=== PATIENT | male | born 1965 | race African-American/Black ===

== ENCOUNTER 2017-04-13 22:31 | Inpatient (IN) | payer SELFPAY ==
[~2017-04-13] VITALS: Ht 182.9 cm; Wt 77.1 kg
[2017-04-13] MEDS ORDERED: IV NORMAL SALINE 1000 ML BAG IV ONE (23:30)
[2017-04-13] MEDS ORDERED: ONDANSETRON 4 MG/2 ML VIAL IV ONE (23:30)
[2017-04-13 23:45] LABS: BASOPHILS # (AUTO) 0.2 K/uL (0.0-8.0); BASOPHILS % (AUTO) 1.2 % (0.0-2.0); EOSINOPHILS # (AUTO) 1.1 K/uL (0.0-0.7); HEMATOCRIT 37.5 % (40-50); HEMOGLOBIN 12.8 G/DL (14.0-18.0); LYMPHOCYTES # (AUTO) 1.3 K/UL (0.8-4.8); LYMPHOCYTES % (AUTO) 7.7 % (20.5-51.5); MEAN CORPUSCULAR HEMOGLOBIN 31.1 UUG (27.0-31.0); MEAN CORPUSCULAR HGB CONC 34 g/dL (32.0-37.0); MEAN CORPUSCULAR VOLUME 90.8 FL (82.0-92.0); MONOCYTES # (AUTO) 0.5 K/UL (0.1-1.30); MONOCYTES % (AUTO) 3.1 % (0.0-11.0); NEUTROPHILS # (AUTO) 13.3 K/UL (1.8-8.9); PLATELET COUNT (AUTO) 653 K/UL (150-450); RED BLOOD CELL COUNT(AUTO) 4.13 MIL/UL (4.7-6.1); WHITE BLOOD COUNT (AUTO) 16.4 K/UL (4.0-11.2)
[2017-04-13] MEDS ORDERED: ONDANSETRON 4 MG/2 ML VIAL ONE (23:46)
[2017-04-14] VITALS (7 sets, daily range): BP systolic 142–174; BP diastolic 66–88
[2017-04-14 00:06] LABS: BILIRUBIN,DIRECT 0.1 mg/dL (0.0-0.2); BILIRUBIN,TOTAL 0.3 mg/dL (0.2-1.0); POTASSIUM 3.2 mmol/L (3.5-5.1); TOTAL PROTEIN, SERUM 8.3 g/dL (6.4-8.2)
[2017-04-14 01:27] LABS: *BILIRUBIN,URIN NEGATIVE (NEGATIVE); *BLOOD, URINE 1+ (NEGATIVE); *CLARITY,URINE CLEAR (CLEAR); *COLOR,URINE YELLOW (YELLOW); *KETONES,URINE NEGATIVE (NEGATIVE); *PROTEIN,URINE NEGATIVE (NEGATIVE); *UROBILINOGEN,URINE 0.2 E.U./dl (NORMAL); LEUKOCYTE ESTERASE ,URINE NEGATIVE (NEGATIVE); NITRITE, URINE NEGATIVE (NEGATIVE); PH,URINE 6.5 (5.0-8.0); UGLUCOSE NEGATIVE (NEGATIVE)
[2017-04-14 01:41] LABS: BACTERIA,URINE NONE SEEN /HPF (NONE SEEN); RBC,URINE 0-3 /HPF (0-3); SQUAMOUS EPITHELIAL CELL,UR FEW /HPF (NONE SEEN)
[2017-04-14] MEDS ORDERED: IOHEXOL 300MG/ML 100 ML INFUS..BTL ONE (02:02)
[2017-04-14] MEDS ORDERED: IV NORMAL SALINE 250 ML IV ONE (02:02)
[2017-04-14] MEDS ORDERED: VANCOMYCIN IV 1,000 MG in IV DEXTROSE 5% 250 ML IV ONE (03:30)
[2017-04-14] MEDS ORDERED: PIPERACILLIN SODIUM/TAZOBACTAM 3.375 G in IV DEXTROSE 5% 50 ML IV ONE (03:30)
[2017-04-14] MEDS ORDERED: PIPERACILLIN/TAZOBACTAM/D5W 50 ML IV ONE (03:45)
[2017-04-14] MEDS ORDERED: IV NS 1000 ML 1,000 ML IV PRN (04:23)
[2017-04-14] MEDS ORDERED: Z GUARD REMEDY PASTE 57 GM TUBE TOP PRN (04:30)
[2017-04-14] MEDS ORDERED: ACETAMINOPHEN 325 MG TABLET PO PRN (04:30)
[2017-04-14] MEDS ORDERED: ONDANSETRON 4 MG/2 ML VIAL IV PRN (04:30)
[2017-04-14] MEDS ORDERED: MAGNESIUM HYDROXIDE 30 ML LIQUID UDC PO PRN (04:30)
[2017-04-14] MEDS ORDERED: VANCOMYCIN IV 200 ML ONE (04:33)
--- NOTE | 2017-04-14 04:49 | NUR ---
Pt. admitted to TELE, under care of Dr. Martinez Belongs List completed
[2017-04-14 06:44] LABS: BASOPHILS % (AUTO) 0.2 % (0.0-2.0); EOSINOPHILS # (AUTO) 1.3 K/uL (0.0-0.7); EOSINOPHILS % (AUTO) 9.3 % (0.0-7.0); HEMATOCRIT 35.4 % (40-50); HEMOGLOBIN 12.1 G/DL (14.0-18.0); LYMPHOCYTES # (AUTO) 1.7 K/UL (0.8-4.8); LYMPHOCYTES % (AUTO) 12.4 % (20.5-51.5); MEAN CORPUSCULAR HEMOGLOBIN 31.2 UUG (27.0-31.0); MEAN CORPUSCULAR HGB CONC 34 g/dL (32.0-37.0); MEAN CORPUSCULAR VOLUME 91.6 FL (82.0-92.0); MONOCYTES % (AUTO) 7.1 % (0.0-11.0); NEUTROPHILS # (AUTO) 9.9 K/UL (1.8-8.9); PLATELET COUNT (AUTO) 622 K/UL (150-450); RED BLOOD CELL COUNT(AUTO) 3.87 MIL/UL (4.7-6.1); WHITE BLOOD COUNT (AUTO) 13.9 K/UL (4.0-11.2)
[2017-04-14 07:10] LABS: THYROID STIMULATING HORMONE 1.574 mIU/mL (0.358-3.740)
[2017-04-14 08:28] LABS: BILIRUBIN,TOTAL 0.3 mg/dL (0.2-1.0); CREATININE 1.1 mg/dL (0.6-1.3); MAGNESIUM 2.1 mg/dL (1.8-2.4); PHOSPHOROUS 2.5 mg/dL (2.5-4.9); POTASSIUM 3.4 mmol/L (3.5-5.1); TOTAL PROTEIN, SERUM 7.6 g/dL (6.4-8.2)
[2017-04-14] MEDS ORDERED: IBUP-1957 PO (08:52)
[2017-04-14] MEDS: PIPERACILLIN/TAZOBACTAM/D5W 50 ML IV SCH ×3 (09:50→21:21)
[2017-04-14] MEDS ORDERED: IPRATROPIUM BROMIDE 0.5 MG/2.5 ML NEBU NEB PRN (10:00)
[2017-04-14] MEDS ORDERED: CLONIDINE HCL 0.1 MG TABLET PO PRN (10:00)
[2017-04-14] MEDS ORDERED: POTASSIUM CHLORIDE 20 MEQ TAB.PRT.SR PO ONE (10:00)
[2017-04-14] MEDS ORDERED: ALBUTEROL SULFATE 2.5 MG/3 ML NEBU NEB PRN (10:00)
[2017-04-14] MEDS ORDERED: ALBUTEROL SULFATE 2.5 MG/ 0.5 ML NEBU NEB PRN (10:00)
--- NOTE | 2017-04-14 10:20 | NUR ---
PATIENT SEEN AND EXAMINED BY DR HALL WITH NEW ORDERS AND NOTED.
--- NOTE | 2017-04-14 11:15 | NUR ---
PATIENT IS FOR ULTRASOUND OF THE ABDOMEN TODAY AND HAS TO BE NPO UNTIL ABOUT [phone].PATIENT AWARE
[2017-04-14 11:28] LABS: ABG BASE EXCESS 4.3 mmol/L; ABG HCO3 27.7 mmol/L; ABG PH 7.492 (7.350-7.450); ABG PO2 64.4 mmHg (75.0-100.0); ABG SITE RIGHT BRACHIAL; COHb 1.5 % (0.5-1.5); MetHb 0.3 % (0.0-1.5); O2Hb 90.6 % (94.0-97.0); VENT MODE RA
[2017-04-14] MEDS ORDERED: ALBUTEROL SULFATE 2.5 MG/3 ML NEBU NEB SCH (11:30)
[2017-04-14] MEDS: AZITHROMYCIN IV 500 MG in IV DEXTROSE 5% 250 ML IV SCH (11:47)
[2017-04-14] MEDS: IPRATROPIUM BROMIDE 0.5 MG/2.5 ML NEBU NEB SCH ×4 (11:48→22:44)
[2017-04-14] MEDS: ALBUTEROL SULFATE 2.5 MG/ 0.5 ML NEBU NEB SCH ×4 (11:50→22:44)
--- NOTE | 2017-04-14 12:17 | NUR ---
BLOOD PRESSURE IS 163/88 AT THIS TIME WITH ORDER TO STOP THE IVF AND START PATIENT ON NORVASC.PATIENT AWARE..
[2017-04-14] MEDS: AMLODIPINE 5 MG TABLET PO SCH (12:41)
--- NOTE | 2017-04-14 14:00 | NUR ---
PATIENT AWARE THAT DR HALL ORDERED TO CHECK O2 SATURATION ON ROOM AIR AT REST AND AFTER EXERCISE AND HE STATED OKAY WILL LET ME KNOW WHEN HE CAM AMBULATE.NO RESPIRATORY DISTRESS AT THIS TIME.
[2017-04-14] MEDS: VANCOMYCIN IV 1,250 MG in IV DEXTROSE 5% 500 ML IV SCH (14:24)
--- NOTE | 2017-04-14 15:48 | NUR ---
Clinical pharmacy note-Vancomycin dosing per pharmacy Subjective: To start empiric Vancomycin dosing on this patient (possible pneumonia) Objective: BUN 9 Scr 1.1 WBC 13.9 Temp 98.7 Ht 6' Wt 170 lbs Assessment/Plan: Patient had Vancomycin 1gram x1 in ER today at 0415. Will continue as Vancomycin 1250mg IV every 12hrs(first dose today at 1400) and draw trough by 4th dose(not ordered yet) for expected trough around 16. Will monitor renal function closely to adjust the dose. Will follow daily.
--- NOTE | 2017-04-14 17:30 | NUR ---
PATIENTS SATURATION CHECKED ON ROOM AIR WHILE HE WAS RESTING IN HIS BED AND ITS 96% WITH HEART RATE OF 83.THEN PATIENT ASSISTED WITH AMBULATION ON THE HALLWAY AROUND THE NURSES STATION AND O2 SAT CHECKED AND ITS 93-94% WITH HEART RATE OF 88.PATIENT EXPRESSED HAVING SHORTNESS OF BREATH AND REQUESTED FOR HAND HELD NEBULIZER GIVEN AND HELPFUL.
--- NOTE | 2017-04-14 19:35 | NUR ---
PT RECEIVED IN BED, AWAKE. A/OX4. ABLE TO MAKE NEEDS KNOWN. V/S STABLE. NO ACUTE DISTRESS NOTED. NO COMPLAINTS OF PAIN AT THIS TIME. PT DOES NOT COMPLAIN OF SOB. PT HEAD ELEVATED. SAFETY MEASURES IMPLEMENTED. CALL LIGHT WITHIN REACH.
--- NOTE | 2017-04-14 19:48 | NUR ---
ROUTINE ALBUTEROL + ATROVENT TX NOT ADMINISTERED AT 1900 DUE TO PRN BEING ADMINISTERED AT 1820. NO SOB NOTED AT THIS TIME. PATIENT IS IN STABLE CONDITION; VITAL WITHIN NORMAL RANGE. WILL CONTINUE TO MONITOR.
[2017-04-14] MEDS: HYDROCODONE/APAP 5-325MG TABLET PO PRN (22:29)
[2017-04-15] MEDS: VANCOMYCIN IV 1,250 MG in IV DEXTROSE 5% 500 ML IV SCH ×2 (02:11→14:41)
[2017-04-15] MEDS: ALBUTEROL SULFATE 2.5 MG/ 0.5 ML NEBU NEB SCH ×6 (02:26→22:45)
[2017-04-15] MEDS: IPRATROPIUM BROMIDE 0.5 MG/2.5 ML NEBU NEB SCH ×6 (02:26→22:44)
[2017-04-15 04:00] VITALS: BP 140/82
[2017-04-15] MEDS: PIPERACILLIN/TAZOBACTAM/D5W 50 ML IV SCH ×4 (05:34→22:02)
--- NOTE | 2017-04-15 06:10 | NUR ---
END OF SHIFT NOTES. PT SLEPT WELL THROUGHOUT SHIFT. PT IN STABLE CONDITION. NO ACUTE DISTRESS NOTED. IV ANTIBIOTICS INFUSED. NEEDS ATTENDED. SAFETY MAINTAINED. CALL LIGHT WITHIN REACH.
[2017-04-15 07:13] LABS: BASOPHILS # (AUTO) 0.1 K/uL (0.0-8.0); BASOPHILS % (AUTO) 0.7 % (0.0-2.0); EOSINOPHILS # (AUTO) 1.2 K/uL (0.0-0.7); EOSINOPHILS % (AUTO) 11.2 % (0.0-7.0); LYMPHOCYTES # (AUTO) 2.1 K/UL (0.8-4.8); LYMPHOCYTES % (AUTO) 19.3 % (20.5-51.5); MEAN CORPUSCULAR HEMOGLOBIN 30.7 UUG (27.0-31.0); MEAN CORPUSCULAR HGB CONC 33 g/dL (32.0-37.0); MEAN CORPUSCULAR VOLUME 91.9 FL (82.0-92.0); MONOCYTES # (AUTO) 0.8 K/UL (0.1-1.30); MONOCYTES % (AUTO) 7.9 % (0.0-11.0); NEUTROPHILS # (AUTO) 6.5 K/UL (1.8-8.9); NEUTROPHILS % (AUTO) 60.9 % (38.5-71.5); PLATELET COUNT (AUTO) 629 K/UL (150-450); RED BLOOD CELL COUNT(AUTO) 3.92 MIL/UL (4.7-6.1); WHITE BLOOD COUNT (AUTO) 10.7 K/UL (4.0-11.2)
[2017-04-15 07:34] LABS: BILIRUBIN,TOTAL 0.2 mg/dL (0.2-1.0); MAGNESIUM 2.1 mg/dL (1.8-2.4); POTASSIUM 3.5 mmol/L (3.5-5.1); TOTAL PROTEIN, SERUM 7.6 g/dL (6.4-8.2)
[2017-04-15] MEDS: AMLODIPINE 5 MG TABLET PO SCH (08:33)
--- NOTE | 2017-04-15 10:00 | NUR ---
PATIENT SEEN AND EXAMINED BY DR MI WITH NO NEW ORDERS AT THIS TIME.REMAIN ON IV ANTIBIOTICS ORDERED WITH NO ADVERSE OR ALLERGIC REACTIONS AT THIS TIME.REMAIN ON HAND HELD NEBULIZER ORDERED AND HELPFUL.
[2017-04-15 10:11] LABS: HEPATITIS A AB, IgM Negative (Negative); HEPATITIS B SURFACE AG Negative (Negative)
[2017-04-15] MEDS: AZITHROMYCIN IV 500 MG in IV DEXTROSE 5% 250 ML IV SCH (10:29)
[2017-04-15 11:36] VITALS: BP 137/85
--- NOTE | 2017-04-15 12:27 | NUR ---
PATIENT SEEN AND EXAMINED BY DR HALL WITH NEW ORDERS AND NOTED.PATIENT IS NOW WALKING IN THE HALLWAY ROOM AIR WITH NO SHORTNESS OF BREATH AT THIS TIME.
--- NOTE | 2017-04-15 13:32 | NUR ---
Clinical pharmacy note-Vancomycin dosing per pharmacy Subjective: To continue empiric Vancomycin dosing on this patient for bilateral pneumonia, acute community-acquired, probably atypical (per Dr. Garcia note) Objective: BUN 7 Scr 1.0 WBC 10.7 Temp 98.4 Ht 6' Wt 170 lbs Assessment/Plan: Will continue as Vancomycin 1250mg IV every 12hrs for today for predicted vanco trough level of 15 mcg/ml at steady state. Third dose is due tomorrow at 0200. Plan to draw trough by 4th dose(ordered for 04/16 at 1330). Will monitor renal function closely to adjust the dose. Will follow daily.
[2017-04-15 16:10] VITALS: BP 154/90
--- NOTE | 2017-04-15 17:59 | NUR ---
RESTING IN BED CONTINUES WITH IV ANTIBIOTICS ORDERED WITH NO ADVERSE OR ALLERGIC REACTIONS AT THIS TIME.PATIENT STATED FEELING BETTER BUT STILL HAS NO APPETITE.
--- NOTE | 2017-04-15 19:40 | NUR ---
PT RECEIVED IN BED, AWAKE. AT BEDSIDE. V/S STABLE. NO ACUTE DISTRESS NOTED. NO COMPLAINTS OF PAIN AT THIS TIME. IV HEP-LOCKED. PT SHOWS NO S/S OF RESPIRATORY DISTRESS. VERBALIZED SOB AND HAVING TO CATCH BREATH AFTER SPEAKING FOR LONG PERIODS. SAFETY MEASURES IMPLEMENTED. CALL LIGHT WITHIN REACH.
[2017-04-15 19:54] LABS: PRE ALBUMIN 14.2 MG/DL (18.0-35.7)
[2017-04-15 20:58] VITALS: BP 136/94
[2017-04-15] MEDS: LACTOBACILLUS RHAMNOSUS GG 1 EACH CAPSULE PO SCH (22:02)
[2017-04-15] MEDS: HYDROCODONE/APAP 5-325MG TABLET PO PRN (22:18)
[2017-04-16] MEDS: VANCOMYCIN IV 1,250 MG in IV DEXTROSE 5% 500 ML IV SCH (01:16)
[2017-04-16] MEDS: IPRATROPIUM BROMIDE 0.5 MG/2.5 ML NEBU NEB SCH ×6 (02:31→22:44)
[2017-04-16] MEDS: ALBUTEROL SULFATE 2.5 MG/ 0.5 ML NEBU NEB SCH ×6 (02:31→22:44)
[2017-04-16 04:00] VITALS: BP 137/84
[2017-04-16] MEDS: PIPERACILLIN/TAZOBACTAM/D5W 50 ML IV SCH ×4 (04:14→21:14)
--- NOTE | 2017-04-16 07:01 | NUR ---
END OF SHIFT NOTES. PT IN STABLE CONDITION. IN NO ACUTE DISTRESS. NO COMPLAINTS OF SOB. NEEDS ATTENDED. IV ANTIBIOTICS INFUSED. SAFETY MAINTAINED.
[2017-04-16] MEDS: LACTOBACILLUS RHAMNOSUS GG 1 EACH CAPSULE PO SCH ×2 (09:31→20:24)
[2017-04-16] MEDS: AMLODIPINE 5 MG TABLET PO SCH (09:33)
--- NOTE | 2017-04-16 10:30 | NUR ---
ASSUMED CARE OF THIS PATIENT AT THIS TIME HE IS ALERT AND ORIENTED REMAIN ON ANTIBIOTICS ORDERED WITH NO ADVERSE OR ALLERGIC REACTIONS AT THIS TIME HHN TREATMENTS IN PROGRESS ORDERED AND HELPFUL REMAIN ON ROOM AIR WITH NO SOB AT THIS TIME.
[2017-04-16] MEDS: AZITHROMYCIN IV 500 MG in IV DEXTROSE 5% 250 ML IV SCH (11:22)
[2017-04-16 12:10] VITALS: BP 132/85
--- NOTE | 2017-04-16 14:23 | NUR ---
VANCO TROUGH LEVEL IS 7.1 PATIENT HAS VANCOMICIN DUE TO BE ADMINISTERED AT THIS TIME.CALLED PHARMACY AND NOTIFIED THEM AND PER HOMER WILL RE DOSE THE VANCOMICIN.
[2017-04-16] MEDS: VANCOMYCIN IV 1,500 MG in IV DEXTROSE 5% 500 ML IV SCH ×2 (14:45→22:02)
--- NOTE | 2017-04-16 14:51 | NUR ---
Clinical pharmacy note-Vancomycin dosing per pharmacy Subjective: To continue empiric Vancomycin dosing on this patient for bilateral pneumonia, acute community-acquired, probably atypical (per Dr. Garcia note) Objective: BUN 7 Scr 1.0 WBC 10.7 (from 04/15) Temp 98.4: vanco trough 7.1 @ 13:40 Ht 6' Wt 170 lbs Assessment/Plan: Will change regimen as Vancomycin 1500mg IV every 8 hrs (today's dose # 1) for predicted vanco trough level of 17 mcg/ml at steady state. will order a new trough prior to 4th dose (not ordered yet) Will monitor renal function closely to adjust the dose. Will follow daily.
[2017-04-16 16:15] VITALS: BP 127/81
--- NOTE | 2017-04-16 16:58 | NUR ---
PATIENT SEEN AND EXAMINED BY DR HALL WITH NEW ORDERS AND NOTED.REMAIN ON IV ANTIBIOTICS ORDERED WITH NO ADVERSE OR ALLERGIC REACTIONS AT THIS TIME.
--- NOTE | 2017-04-16 18:30 | NUR ---
ASSISTED PATIENT INTO SHOWER ROOM WITH HIS IV SITE WRAPPED AND SECURED.
[2017-04-16 20:00] VITALS: BP 161/99
--- NOTE | 2017-04-16 20:00 | NUR ---
patient alert, oriented,afebrile,no sob,o2 sat >94% in room air,patient remains feeling weak,poor appetite,denies pain/discomfort.Bp 161/99,Catapres o.1 mg po given,continue closely monitor.
[2017-04-16 21:08] LABS: *QFT MITOGEN VALUE 5.01 IU/mL (.); *QFT TB AG MINUS NIL VALUE <0.00 IU/mL (.); *QFT TB AG VALUE 0.04 IU/mL (.); *QFT TB GOLD Negative (Negative)
--- NOTE | 2017-04-17 | NUR ---
PATIENT RECEIVED BREATHING TREATMENT WITH GOOD RESULT, BUT REQUESTED TO HOLD 0330 DOSE.
[2017-04-17] MEDS: IPRATROPIUM BROMIDE 0.5 MG/2.5 ML NEBU NEB SCH ×4 (02:32→14:56)
[2017-04-17] MEDS: ALBUTEROL SULFATE 2.5 MG/ 0.5 ML NEBU NEB SCH ×4 (02:32→14:56)
[2017-04-17 04:00] VITALS: BP 123/74
[2017-04-17] MEDS: PIPERACILLIN/TAZOBACTAM/D5W 50 ML IV SCH ×3 (04:11→15:31)
[2017-04-17] MEDS: VANCOMYCIN IV 1,500 MG in IV DEXTROSE 5% 500 ML IV SCH ×2 (05:27→14:00)
--- NOTE | 2017-04-17 06:00 | NUR ---
PATIENT SLEPT WELL THROUGH THE SHIFT,NO RESPIRATORY DISTRESS,DOING OK IN ROOM AIR, AFEBRILE,BP STABLE.
[2017-04-17 06:24] LABS: BASOPHILS % (AUTO) 0.4 % (0.0-2.0); EOSINOPHILS % (AUTO) 10.5 % (0.0-7.0); HEMATOCRIT 41.2 % (40-50); LYMPHOCYTES # (AUTO) 2.3 K/UL (0.8-4.8); LYMPHOCYTES % (AUTO) 24.2 % (20.5-51.5); MEAN CORPUSCULAR HEMOGLOBIN 30.8 UUG (27.0-31.0); MEAN CORPUSCULAR HGB CONC 34 g/dL (32.0-37.0); MEAN CORPUSCULAR VOLUME 90.5 FL (82.0-92.0); MONOCYTES # (AUTO) 0.8 K/UL (0.1-1.30); MONOCYTES % (AUTO) 8.3 % (0.0-11.0); NEUTROPHILS # (AUTO) 5.3 K/UL (1.8-8.9); NEUTROPHILS % (AUTO) 56.6 % (38.5-71.5); PLATELET COUNT (AUTO) 728 K/UL (150-450); RED BLOOD CELL COUNT(AUTO) 4.55 MIL/UL (4.7-6.1); WHITE BLOOD COUNT (AUTO) 9.4 K/UL (4.0-11.2)
[2017-04-17 06:40] LABS: BILIRUBIN,TOTAL 0.4 mg/dL (0.2-1.0); CREATININE 1.2 mg/dL (0.6-1.3); MAGNESIUM 2.2 mg/dL (1.8-2.4); POTASSIUM 4.3 mmol/L (3.5-5.1); TOTAL PROTEIN, SERUM 8.9 g/dL (6.4-8.2)
[2017-04-17] MEDS: LACTOBACILLUS RHAMNOSUS GG 1 EACH CAPSULE PO SCH (08:59)
[2017-04-17] MEDS: AMLODIPINE 5 MG TABLET PO SCH (08:59)
--- NOTE | 2017-04-17 09:00 | NUR ---
PT REPORTS TENDERNESS ON HIS R AC WHERE HE HAD IV. OFFERED ICEPACKS MULTIPLE TIMES, PT REFUSED.
[2017-04-17] MEDS: AZITHROMYCIN IV 500 MG in IV DEXTROSE 5% 250 ML IV SCH (10:51)
[2017-04-17 11:04] VITALS: BP 118/76
[2017-04-17 15:07] VITALS: BP 125/72
--- NOTE | 2017-04-17 15:20 | NUR ---
Clinical pharmacy note-Vancomycin dosing per pharmacy Subjective: To continue empiric Vancomycin dosing on this patient for bilateral pneumonia Objective: BUN 13 Scr 1.2 WBC 9.4 Temp 98.2: vanco trough 20.5 @ 13:30 Ht 6' Wt 170 lbs Assessment/Plan: Since Vancomycin trough is over the therapeutic range, will change regimen as Vancomycin 1500mg IV every 10 hrs ,starting today at 1600(2nd dose) for predicted vanco trough level of 15 mcg/ml at steady state. will order a new trough prior to 4th dose (not ordered yet) Will monitor renal function closely to adjust the dose. Will follow daily.
[2017-04-17] MEDS ORDERED: VANCOMYCIN IV 1,500 MG in IV DEXTROSE 5% 500 ML IV SCH (16:00)
[2017-04-17 19:07] LABS: COCCIDIOIDES CF SERUM Negative (Neg:<1:2)
--- NOTE | 2017-04-17 19:08 | NUR ---
DISCHARGE NOTE: PT IS SITTING IN BED COMFORTABLY. NO PAIN NOTED. NO S/S OF RESPIRATORY DISTRESS NOTED. VS WNL. ALL SAFETY NEEDS ARE MET. NO S/S OF BLEEDING. PT REFUSED TO HAVE PHARMACIST TO GIVE EDUCATION AND FLU SWAB. EDUCATION IS GIVEN.
--- NOTE | 2017-04-17 19:14 | NUR ---
NO DIZZINESS REPORTED. 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
--- NOTE | 2017-04-17 19:26 | NUR ---
IV HAD 1 MIN LEFT AND IV PUMP STOPPED WORKING, PT REFUSED TO FINISH THE REST OF IT. IV IS REMOVED.
== END 2017-04-17 19:28 | disposition home or self-care (01) | DRG 193 ==
LOC: ER 22:36 → MED 04-14 04:25 → TELE 04-14 05:02 → MED 04-14 17:18
PROVIDERS: ADMIT Contractor; ATTEND Nurse Practitioner Acute Care
DX: J15.4 Pneumonia due to other streptococci (principal); E43 Unspecified severe protein-calorie malnutrition; J90 Pleural effusion, not elsewhere classified; D64.9 Anemia, unspecified; D75.89 Other specified diseases of blood and blood-forming organs; E78.5 Hyperlipidemia, unspecified; E87.6 Hypokalemia; F12.90 Cannabis use, unspecified, uncomplicated; I10 Essential (primary) hypertension; R59.0 Localized enlarged lymph nodes; Z72.0 Tobacco use; R74.0 Nonspecific elevation of levels of transaminase and lactic acid dehydrogenase [LDH]
CPT/HCPCS: 36415; 36600; 70030-TC; 71010; 71275; 76705; 83605; 83615; 83735; 84100; 84443; 85025; 85730; 86480; 86705; 86709; 86803; 87040; 87070; 87086; 87340; 87806; 93005; 94640; 94664; A4663; J0456; J2405; J2543; J3370; J3590; J7030; J7050; J7060; Q9967